=== PATIENT | male | born 1980 | race Caucasian/White ===

== ENCOUNTER 2019-03-14 14:44 | Outpatient (CLI) | payer OTHER ==
[~2019-03-14] VITALS: Ht 160 cm; Wt 86.1 kg
--- NOTE | ~2019-03-14 | HEMODYNAMI ---
PATIENT:LONA WILSON MEDICAL RECORD: [id number] : 80 [facility] [id number] ADMISSION DATE: 03/14/19 Generatedon:03/15/201912:45 Patient name: LONA WILSON Patient #: [id number] SSN: DO B: 1980 Date of study: 03/15/2019 Page: Of Hemodynamic Procedure Report Patient Data Patient Demographics Procedure consent was obtained First Name: LONA Gender: Male Last Name: KATIE : 1980 Patient #: [id number] Age: 38 year(s) Race: Unknown Additional ID: [id number] Contact details [address]: [address] [place] [address] [employer] [facility] [address] State: [place] City: [place] Zip code: [address] Admission Admission Data Admission Date: 03/14/2019 Admission Time: 14:44 Room #: D.2115 Height (in.): 63 BSA: 1.89 (m2) Height (cm.): 160.02 BMI: 33.64 (kg/m2) Weight (lbs.): 189.89 Weight (kg.): 86.13 Lab Results Lab Result Date: 03/15/2019 Lab Result Time: 0:00 Biochemistry Name Units Result Min Max BUN mg/dl 23 --(----)-* 7 18 Creatinine mg/dl 1.3 --(---*)-- 0.6 1.3 CBC Name Units Result Min Max Hemoglobin g/dl 13 -*(----)-- 13.5 17.5 Procedure Procedure Types Cath Procedure Diagnostic Procedure LHC LHC w/Coronaries Procedure Description Procedure Date Procedure Date: 03/15/2019 Procedure Start Time: 12:31 Procedure End Time: 12:37 Procedure Staff Name Function Familia Michelle MD Performing Physician Tia Crowe RT Monitor Deirdre Carrillo RN Nurse Yris Schmitt RT Scrub Procedure Data Cath Procedure Fluoroscopy Diagnostic fluoroscopy Total fluoroscopy Time: 0.9 time: 0.9 min min Diagnostic fluoroscopy Total fluoroscopy dose: 318 dose: 318 mGy mGy Contrast Material Contrast Material Type Amount (ml) Isovue 370 42 Entry Location Entry Primary Successful Side Size Upsize Upsize Entry Closure Succes sful Closure Location (Fr) 1 (Fr) 2 (Fr) Remarks Device Remarks Femoral Right 5 Fr Exoseal artery Estimated blood loss: 5 ml Diagnostic catheters Device Type Used For End Catheter Placement MULTIPACK Pigtail 5 Fr LV Angiography catheter MULTIPACK JL 4.0 5Fr Left Coronary catheter Angiography MULTIPACK 3DRC 5Fr Right Coronary catheter Angiography Procedure Complications No complications Procedure Medications Medication Administration Route Dosage Oxygen etCO2 Nasal cannula 2 l/min Lidocaine 2% added to field 20 Heparin Flush Bag added to field 2 bags (1000units/500ml NS) Versed I.V. 1 mg Fentanyl I.V. 50 mcg Versed I.V. 1 mg Fentanyl I.V. 50 mcg Hemodynamics Rest BSA: 1.89 (m2) HGB: 13 (g/dl) O2 Consumption: Estimated: 234.13 (ml/min) O2 Cons umption indexed: Estimated:123.88 (ml/min/m) Heart Rate: 73 (bpm) Pressure Samples Time Site Value (mmHg) Purpose Heart Use Rate(bpm) 12:32 LV 129/1,3 Snapshot 70 Snapshots Pre Cath Intra NCS Post Cath Vital Signs Time Heart Resp SPO2 etCO2 NIBP (mmHg) Rhythm Pain Sedation Rate (ipm) (%) (mmHg) Status Level (bpm) 12:15:31 74 17 100 0 139/89(105) NSR 0 (11) 10(A) , No pain 12:19:39 70 13 100 39.6 137/89(108) NSR 0 (11) 10(A) , No pain 12:23:43 74 16 100 38.1 133/93(109) NSR 0 (11) 10(A) , No pain 12:27:51 72 14 100 36.7 124/79(97) NSR 0 (11) 10(A) , No pain 12:31:55 74 14 98 30.6 123/84(93) NSR 0 (11) 9(A) , No pain 12:35:58 79 16 96 43.4 134/81(100) NSR 0 (11) 9(A) , No pain 12:40:02 74 13 98 43.3 126/82(104) NSR 0 (11) 10(A) , No pain 12:44:06 79 10 90 0 121/80(101) NSR 0 (11) 10(A) , No pain Medications Time Medication Route Dose Verified Delivered Reason Notes Eff ectiveness by by 12:19:12 Oxygen etCO2 2 Familia Irinaie used for Nasal l/min Miguel Angel Carrillo RN procedure cannula 12:19:20 Lidocaine 2% added 20ml Familia Familia for local to vial Miguel Angel Michelle MD anesthetic field 12:19:26 Heparin Flush added 2 Familia Familia used for Bag to bags Miguel Angel Michelle MD procedure (1000units/500ml field NS) 12:26:54 Versed I.V. 1 mg Familiahector Arevaloie for Miguel Angel Carrillo RN sedation 12:27:00 Fentanyl I.V. 50 Familia Buffie for mcg Miguel Angel Carrillo RN sedation 12:32:23 Versed I.V. 1 mg Familia Buffie for Miguel Angel Carrillo RN sedation 12:32:26 Fentanyl I.V. 50 Familia Buffie for mcg Miguel Angel Carrillo RN sedation Procedure Log Time Note 11:46:53 Patient Height : 63 inches 11:47:01 Patient Weight : 189.89 lbs 11:47:59 Lab Result : Hemoglobin 13 g/dl 11:47:59 Lab Result : Creatinine 1.3 mg/dl 11:47:59 Lab Result : BUN 23 mg/dl 11:48:41 Diagnostic Cath status Elective 11:48:44 Tia Crowe RT(R) sent for patient. Start room use. 11:48:45 Time tracking: Regular hours (M-F 7:00 - 5:00) 11:48:52 Plan of Care:Hemodynamics will remain stable., Cardiac rhythm will remain stable., Comfort level will be maintained., Respiratory function will remain adequate., Patient/ family verbilizes understanding of procedure., Procedure tolerated without complication., Recovers from procedure without complications.. 11:50:18 Patient received from Med II to CCL 1 Alert and oriented. Tansferred to table in Supine position. 12:14:21 Warm blankets applied, and saturnino hugger turned on for patient comfort. 12:14:21 Correct patient and procedure confirmed by team. 12:14:23 Signed procedure consent form obtained from patient. 12:14:24 ECG and BP/O2 sat monitors applied to patient. 12:14:24 Vital chart was started 12:14:25 Baseline sample Acquired. 12:14:30 Rhythm: sinus rhythm 12:14:33 Full Disclosure recording started 12:14:38 H&P Date Dictated: 03/15/2019 New H&P dictated by physician.. 12:14:39 Pre-procedure instructions explained to patient. 12:14:40 Pre-op teaching completed and patient verbalized understanding. 12:14:42 Family in waiting room. 12:14:44 Patient NPO since Midnight. 12:14:47 Is the patient allergic to Iodine/contrast media? No. 12:14:48 Was the patient premedicated? No 12:14:48 Is patient on blood thinner?Yes 12:14:51 ACC The patient was administered the following blood thiners within the last 24 hours: ACCPlavix 12:14:53 Patient diabetic? No. 12:14:55 Previous problem with sedation/anesthesia? No ? 12:14:57 Snore? Yes 12:14:58 Sleep apnea? Yes 12:14:59 Deviated septum? No 12:15:00 Opens mouth fully? Yes 12:15:00 Sticks out tongue? Yes 12:15:03 Airway obstruction? No ? 12:15:06 Dentures? No ? 12:15:09 Pre procedure: right dorsailis pedis pulse 2+ Normal; easily identifiable; not easily obliterated 12:15:12 Pre procedure: left dorsailis pedis pulse 2+ Normal; easily identifiable; not easily obliterated 12:15:14 Patient pain scale 0/10 ?. 12:15:23 IV patent on arrival in left antecubital with 0.9% NaCl at [facility]. 12:15:26 Lab results completed and on chart. 12:15:30 Right groin area was prepped with chlora-prep and draped in sterile fashion 12:15:30 Alarms reviewed by R. N. 12:15:31 Sharps counted by scrub and verified by R.N. 12:19:12 Oxygen 2 l/min etCO2 Nasal cannula was administered by Deirdre Carrillo RN; used for procedure; 12:19:20 Lidocaine 2% 20ml vial added to field was administered by Familia Michelle MD; for local anesthetic; 12:19:26 Heparin Flush Bag (1000units/500ml NS) 2 bags added to field was administered by Familia Michelle MD; used for procedure; 12:20: Physician arrived 12:: --------ALL STOP TIME OUT------ 12::07 Final Timeout: patient, procedure, and site verified with staff and physician. All members of the team are in agreement. 12:20:08 Right groin site verified by team. 12:20:11 Maximum allowable Isovue 370 dose 300ml. Physician notified. (300ml for normal creatinines. For patients with creatinine of 1.7 or higher multiply weight(kg) x 5 divided by creatinine.) 12:20:15 Fire Safety Assessment: A--An alcohol-based skin anteseptic being used preoperatively., C--Open oxygen or nitrous oxide is being used., D--An ESU, laser, or fiber-optic light is being used. 12:20:18 Physical assessment completed. ASA score P 2 - A patient with mild systemic disease as per Familia Michelle MD. 12:20:22 Sedation plan: IV Moderate Sedation Medication:Versed, Fentanyl 12:25:04 Use device set Femoral Dx 12:25:05 ACIST Syringe (11885) opened to sterile field. 12:25:06 Bag Decanter (2002S) opened to sterile field. 12:25:06 Medline Cath Pack ([id number]) opened to sterile field. 12:25:07 DIAGNOSTIC WIRE .035 260cm J wire (143227) opened to sterile field. 12:25:08 ACIST Hand Control (56957) opened to sterile field. 12:25:08 ACIST Manifold (14856) opened to sterile field. 12:25:09 DIAGNOSTIC Multipack 5Fr catheter set (OJ5423) opened to sterile field. 12:25:09 Tegaderm 4 x 4 (1626W) opened to sterile field. 12:25:10 SHEATH 5FR [place] (XVZ299) opened to sterile field. 12:26:16 Zero performed for pressure channel P1 12:26:54 Versed 1 mg I.V. was administered by Deirdre Carrillo RN; for sedation; 12:27:00 Fentanyl 50 mcg I.V. was administered by Deirdre Carrillo RN; for sedation; 12:29:42 Procedure started. 12:31:13 Local anesthetic to right femoral artery with Lidocaine 2% by Familia Michelle MD.INITIAL ACCESS ONLY 12::22 A 5 Fr sheath was inserted into the Right Femoral artery 12::54 A MULTIPACK Pigtail 5 Fr catheter was advanced over the wire and used for LV Angiography. 12:32:23 Versed 1 mg I.V. was administered by Deirdre Carrillo RN; for sedation; 12:: Fentanyl 50 mcg I.V. was administered by Deirdre Carrillo RN; for sedation; 12::53 LV hemodynamics recorded. 12:32:54 LV gram done using GANDARA 12::57 Injector settings: Ml/sec: 5, Volume: 15, 12:33:03 EF : 55 % 12:33:04 Catheter removed. 12:33:10 A MULTIPACK JL 4.0 5Fr catheter was advanced over the wire and used for Left Coronary Angiography. 12:33:57 LCA angiography performed. 12:34:00 Injector settings: Ml/sec: 3, Volume: 6, 12:34:39 Catheter removed. 12:34:45 A MULTIPACK 3DRC 5Fr catheter was advanced over the wire and used for Right Coronary Angiography. 12:35:24 RCA angiography performed. 12:35:30 Injector settings: Ml/sec: 3, Volume: 6, 12:35:32 Catheter removed. 12:35:44 EXOSEAL 5Fr (EX500) opened to sterile field. 12:35:55 Sheath removed intact; hemostasis achieved with Exoseal to the Right Femoral artery. 12:35:57 Procedure ended.(Physican Out) 12:36:24 Fluoroscopy time 00.90 minutes. 12:36:31 Fluoroscopy dose: 318 mGy 12:36:31 Flurop Dose total: 318 12:36:35 Contrast amount:Isovue 370 42ml. 12:36:37 Sharps counted by scrub and verified by R.N. 12:36:38 Insertion/operative site no bleeding no hematoma. 12:36:41 Post-op/insertion site Right Femoral artery dressed using a 4 x 4 and Tegaderm. 12:36:44 Post right femoral artery:stable 12:36:46 Post Procedure Pulses reassessed and unchanged 12:36:49 Post procedure rhythm: unchanged. 12:36:51 Estimated blood loss: 5 ml 12:36:53 Post procedure instruction explained to patient.Patient verbalizes understanding. 12:36:53 Patient needs reinforcement of post procedure teaching. 12:37:00 Procedure type changed to Cath procedure, Diagnostic procedure, LHC, LHC w/Coronaries 12:37:01 Procedure and supply charges have been captured, reviewed, submitted and are correct. 12:37:08 Procedure Complication : No complications 12:37:18 Vital chart was stopped 12:37:18 See physician's report for complete and final results. 12:37:23 Report given to [facility]. 12:37:25 Patient transfered to [facility] with Stretcher. 12:37:47 Procedure ended. 12:37:47 Full Disclosure recording stopped 12:37:54 End room use (Document Last) 12:39:05 Vital chart was started 12:45:06 Vital chart was stopped Device Usage Item Name Manufacture Quantity Catalog Hospital Part Current Minimal L ot# / Number Charge Number Stock Stock Serial# Code ACIST Acist 1 81787 471740 782797 188556 20 Syringe Medical (70151) Systems Inc Bag Microtek 1 2001S 599608 44999 518561 5 Decanter Medical Inc. () Medline Medline 1 [id number] 074925 27281 334217 5 Cath Pack ([id number]) DIAGNOSTIC St Noel 1 478627 782240 433477 346635 30 WIRE .035 260cm J wire (412966) ACIST Hand Acist 1 89749 382566 336575 018731 5 Control Medical (05288) Systems Inc ACIST Acist 1 25259 856728 478976 009751 5 Manifold Medical (09496) Systems Inc DIAGNOSTIC Cardinal 1 HG1402 839045 02068 580448 30 Multipack Health 5Fr catheter set (KY7241) Tegaderm 4 3M 1 1626W 185560 216268 107950 5 x 4 (1626W) SHEATH 5FR Terumo 1 FOV396 966492 497801 859013 5 [place] (HJG910) MULTIPACK Cardinal 1 825022 5 Pigtail 5 Health Fr catheter MULTIPACK Cardinal 1 386747 5 JL 4.0 5Fr Health catheter MULTIPACK Cardinal 1 767530 5 3DRC 5Fr Health catheter EXOSEAL 5Fr Cardinal 1 EX500 001693 760174 350413 10 (EX500) Health Signature Audit Rowley Stage Time Signature Unsigned Intra-Procedure 03/15/2019 Tia Crowe 12:45:02 PM RT(R) Signatures Monitor : Tia Crowe RT Signature : Date : Time : [id number] [place] [address]
[2019-03-14] MEDS ORDERED: PRAVACHOL20 MG (14:48)
[2019-03-14] MEDS ORDERED: COZAAR100 MG PO (14:49)
[2019-03-14 15:09] LABS: BASOPHILS 0.1 % (0-2); EOSINOPHILS 0.3 % (0-7); HEMATOCRIT 35.7 % (42.0-54.0); IMMATURE GRANULOCYTES 0.3 % (0-5); LYMPHOCYTES 16.5 % (15-50); MCH 32.7 pg (26.0-34.0); MCHC 36.4 g/dL (31.0-37.0); MCV 89.7 fL (80.0-100.0); MEAN PLATELET VOLUME 8.7 fL (7.4-10.4); MONOCYTES 6.7 % (2-11); NEUTROPHILS 76.1 % (40-80); PLATELET COUNT 216 10x3/uL (130-400); RBC 3.98 10x6/uL (4.20-6.10); RDW 13.1 % (11.5-14.5); WBC 7.3 10x3/uL (4.8-10.8)
[2019-03-14 15:19] LABS: APTT 32.8 SECONDS (22.8-39.4); INR 1.07 (0.85-1.17); PROTIME 13.4 SECONDS (11.6-15.0)
[2019-03-14 15:21] LABS: ALBUMIN 4.1 g/dL (3.4-5.0); ALKALINE PHOSPHATASE 80 U/L (46-116); ALT (SGPT) 97 U/L (10-68); BILIRUBIN - TOTAL 0.75 mg/dL (0.2-1.3); CALC OSMOLALITY 282 mosm/kg (275-300); CALCIUM 9.2 mg/dL (8.5-10.1); CARBON DIOXIDE 23.7 mmol/L (21.0-32.0); CHLORIDE - SERUM 103 mmol/L (98-107); CREATININE - SERUM 1.3 mg/dL (0.6-1.3); GLUCOSE 107 mg/dL (74-106); POTASSIUM - SERUM 3.2 mmol/L (3.5-5.1); PROTEIN - SERUM 7.2 g/dL (6.4-8.2); SODIUM 140 mmol/L (136-145); UREA NITROGEN 23 mg/dL (7-18); eGFR NON AFRICAN AMERICAN 65 mL/min (90-120)
[2019-03-14 15:36] LABS: CKMB 1.1 U/L (0.0-3.6); CREATINE KINASE 125 UL (21-232); MAGNESIUM - SERUM 1.7 mg/dL (1.8-2.4)
[2019-03-14 15:39] LABS: TROPONIN-I 0.072 ng/mL (0.000-0.060)
[2019-03-14 18:06] LABS: CKMB 1.8 U/L (0.0-3.6); CREATINE KINASE 128 UL (21-232)
[2019-03-14 18:07] LABS: TROPONIN-I 0.173 ng/mL (0.000-0.060)
--- NOTE | 2019-03-14 18:45 | NUR ---
ADMIT TO ROOM 2114 FROM ER AT 1830. PT ALERT/ORIENTED. SALINE LOCK TO ISI. NONLABORED RESPIRATIONS ON ROOM AIR. SR 80 PER TELEMETRY. CALL LIGHT IN REACH.
--- NOTE | 2019-03-14 20:00 | NUR ---
ADMISSION HISTORY AND ASSESSENT COMPLETED. HOME MEDS REVIEWED. PT IS FROM [place] OF STATE AND IS A BREASTER. DENIES PAIN OR DISCOMFORT AT THIS TIME.
--- NOTE | 2019-03-14 20:35 | NUR ---
CALLED FROM [place] AND EXPRESSED GREAT CONCERN FOR PT'S BP BEING SO LOW. STATES HIS NORMAL IS 130/80. AGREED TO HOLD THE LOPRESSOR FOR TONIGHT DUE TO HER CONCERN AND WILL MONITOR BLOOD PRESSURE.
[2019-03-14 23:09] VITALS: BP 103/10; Ht 160 cm; Wt 86.1 kg
[2019-03-14 23:38] LABS: CREATINE KINASE 113 UL (21-232)
[2019-03-14 23:40] LABS: TROPONIN-I 0.217 ng/mL (0.000-0.060)
--- NOTE | 2019-03-14 23:58 | NUR ---
PT RESTING. NO DISTRESS. SR PER TELEMETRY. LOPRESSOR HELD PER REQUEST OF FAMILY DUE TO CONCERNS FOR LOWER THAN NORMAL BP. PT TEACHING ON NPO AFTER MIDNIGHT UNTIL SEEN BY CHEMICAL INSTRUMENTATION OFFICER IN AM. PT VOICED UNDERSTANDING. MONITOR AND CPOC.
[2019-03-15 05:19] LABS: CKMB 2.1 U/L (0.0-3.6); CREATINE KINASE 102 UL (21-232)
[2019-03-15 05:21] LABS: TROPONIN-I 0.199 ng/mL (0.000-0.060)
--- NOTE | 2019-03-15 07:59 | NUR ---
REFUSES SCDS AT THIS TIME.
[2019-03-15 08:33] VITALS: BP 105/60
--- NOTE | 2019-03-15 09:48 | NUR ---
TELEMETRY SR. NO C/P C/P NOTED. FAMILY AT BS. CALL LIGHT IN REACH.
--- NOTE | 2019-03-15 12:07 | NUR ---
ECHO COMPLETED. PRE-OPS GIVEN. TO MEDICAL EDUCATION SPECIALIST BY BED.
--- NOTE | 2019-03-15 12:41 | HP ---
PATIENT: LONA WILSON MEDICAL RECORD: [id number] ACCOUNT: [id number] LOCATION:[address] : 80 ADMISSION DATE: 03/14/19 PCP: No PCP HISTORY AND PHYSICAL EXAMINATION DIAGNOSES: 1. Non-Q-wave myocardial infarction. 2. Hypertension. 3. Family history of coronary artery disease. HISTORY OF PRESENT ILLNESS: This is a gentleman with no previous cardiac history for the past week. He has had arm pain that he attributed to musculoskeletal in nature. Yesterday, he developed severe chest pain. This was while exerting himself trying to load something on to a truck. The chest pain lasted for approximately 45 minutes. He presented to the Emergency Room, it was resolved with nitro. His troponin was positive. He has had a recurrent episode of the chest pain today. He was on losartan for blood pressure. He had the addition of Lopressor yesterday. At this time, his heart rates in the 70s, systolic blood pressure is 98, hence there is no more room for medical management and he has continued to have the episodic pain on maximal medical management. He did not feel palpitations with the chest discomfort yesterday. He felt a very prominent strong heartbeat and the arm pain worsened. He is still having the arm pain today as well. PHYSICAL EXAMINATION: GENERAL APPEARANCE: Well-nourished, well-developed, appears stated age. Level of distress, comfortable. PSYCHIATRIC: Mental status, alert, normal affect. Orientation, oriented to time, place and person. EYES: Lids and conjunctiva, noninjected. No discharge, no pallor. ENT: Lips, teeth, gums, normal dentition. Oropharynx, no cyanosis, no pallor. NECK: Carotid arteries, bilateral normal upstroke, no bruits, no thrills. JUGULAR VEINS: No jugular venous pressure or distention. CERVICAL LYMPH NODES: Nontender, nonenlarged. THYROID: Not enlarged. Nontender. No nodules. LUNGS: Respiratory effort, unlabored. CHEST: Normal curvature. No thoracic deformity. No chest wall tenderness. Percussion, resonant. Auscultation, clear. No wheezes, no rales, no rhonchi. CARDIOVASCULAR: Precordial exam, nondisplaced. No heaves or pericardial thrills. Rate and rhythm, regular. Heart sounds, normal S1, normal S2. No S3, no gallop, no rub. Systolic murmur, not heard. Diastolic murmur, not heard. EXTREMITIES: No cyanosis, no edema. Peripheral pulses, full and equal in all extremities, except as noted. No bruits appreciated. ABDOMEN: Soft, nondistended. Normal aorta. No bruit. Nontender. No masses. Liver, nontender, no hepatomegaly. Spleen, nontender, no splenomegaly. MUSCULOSKELETAL: No joint tenderness. No joint swelling. No erythema. NEUROLOGICAL: Normal gait, normal strength, normal tone. SKIN: Warm and dry. OVERALL IMPRESSION: Non-Q-wave myocardial infarction with continued symptomatology despite maximal medical therapy. We will proceed with coronary angiography. Further care depends upon findings of the angiography. TRANSINT:[id number] Voice Confirmation ID: [id number] DOCUMENT ID: [id number] HISTORY AND PHYSICAL [id number] LONA WILSON JEFFREY MD at 1241 CC: [id number] DICTATION DATE: 03/15/19 1119 WIRELESS ARCHITECT: 03/15/19 1207 [facility] [address] [place] [address]
--- NOTE | 2019-03-15 12:44 | NUR ---
ECHO COMPLETED AT BS.
--- NOTE | 2019-03-15 13:07 | NUR ---
BACK FROM PACKAGE MAKER. VS WNL. RIGHT GROIN STABLE WITHOUT BLEEDING OR HEMATOMA NOTED. WILL MONITOR.
[2019-03-15] MEDS ORDERED: TOPROL XL25 MG PO (14:27)
--- NOTE | 2019-03-15 15:35 | NUR ---
IV AND TELEMTRY DCD. DC PLANS GIVEN. UNDERSTANDING VOICED. ESWCORTED TO CAR BY W/C.
--- NOTE | 2019-03-19 11:19 | EC ---
PATIENT:LONA WILSON DATE OF SERVICE: 03/14/19 SEX: M MEDICAL RECORD: [id number] DATE OF : 80 LOCATION:D.CAT AGE OF PATIENT: 38 ADMISSION DATE: 03/14/19 REFERRING PHYSICIAN: INTERPRETING PHYSICIAN: KARLIE MICHELLE MD ECHOCARDIOGRAM REPORT ECHO CHARGES 4 ECHO COMPLETE Date: 03/15/19 CLINICAL DIAGNOSIS: [place] ECHOCARDIOGRAPHIC MEASUREMENTS (adult normal given) AC root (d.<3.7cm) 2.3 cm LV Septum d (<1.2 cm> 1.0 cm Valve Excursion 1.6 cm LV Septum (systole) 1.2 cm Left Atria (s.<4.0cm> 2.9 cm LVPW d(<1.2cm) 1.2 cm RV (d.<2.3cm) 3.1 cm LVPW (sytole) 1.3 cm LV diastole(<5.6CM) 4.0 cm MV E-F(>70mm/sec) cm LV systole 3.1 cm LVOT Diameter 1.8 cm MV exc.(>10mm) cm Est.ejection fraction (50-75%) % DOPPLER: LVIT cm/sec A 55 cm/sec E 93 cm/sec LA cm/sec RVSP 19.4 mmHg LVOT 99 cm/sec AOP1/2T m/s Asc. Ao 113 cm/sec RVOT cm/sec RA cm/sec PA cm/sec AV Gradient Peak 5.1 mmHg AV Mean 2.6 mmHg AV Area cm MV Gradient Peak 4.1 mmHg MV Mean 1.9 mmHg MV Area cm COMMENTS: Legal Recovery Specialist: Yanira HERNANDEZ Geological Technical Officer: 1 Dr. Michelle TAPE# PACS Pericardial Effusion N DATE OF SERVICE: 03/15/2019 FINDINGS: 1. Left ventricular chamber size is within normal limits. Left ventricular systolic function is normal. Overall ejection fraction estimated at 55%. 2. Left atrium, right atrium, and right ventricular chamber sizes are within normal limits. 3. Valvular structures have normal structure and motion. 4. Doppler interrogation reveals mild tricuspid regurgitation, no other valvular insufficiency or stenosis. ECHOCARDIOGRAM REPORT [id number] LONA WILSON 5. No evidence of pericardial effusion or left ventricular thrombus. TRANSINT:[id number] Voice Confirmation ID: [id number] DOCUMENT ID: [id number] KARLIE MICHELLE MD at 1119 CC: [id number] DICTATION DATE: 03/16/19 1023 WATER SERVICE DISPATCHER: 03/16/19 1412 DEP CLI 03/15/19 [id number] [place] [address]
--- NOTE | 2019-03-19 11:19 | OP ---
PATIENT NAME: LONA WILSON MEDICAL RECORD: [id number] :80 LOCATION:D.CAT ADMISSION DATE: SURGEON: KARLIE JENSEN MD DATE OF OPERATION: 03/15/2019 PROCEDURES: 1. Left heart catheterization. 2. Selective coronary angiography. 3. Left ventriculogram. INDICATIONS: Non-Q-wave myocardial infarction, chest pain, hypertension, family history of coronary artery disease. PROCEDURE PERFORMED: After informed consent was obtained and after a detailed explanation of risks, benefits as well as alternative therapies, the patient elected to proceed with angiogram and angioplasty. The right femoral area was prepped and draped in normal sterile fashion. Right femoral artery was cannulated via modified Seldinger technique with placement of 5-Nauruan sheath. All catheters exchanged through this sheath. FINDINGS: Left ventriculogram was performed in standard 30-degree GANDARA view, reveals good cardiac wall motion, ejection fraction of 60%. SELECTIVE CORONARY ANGIOGRAPHY: Left main, left anterior descending, left circumflex, right coronary artery are all smooth-walled vessels with no angiographic evidence of coronary artery disease. OVERALL IMPRESSION: 1. No angiographic evidence of coronary artery disease. 2. Normal left heart pressures. 3. Normal left ventricular systolic function. Chest pain is noncardiac in etiology. No further cardiac workup needs to be ascertained. TRANSINT:[id number] Voice Confirmation ID: [id number] DOCUMENT ID: [id number] KARLIE JENSEN MD at 1119 CC: [id number] DICTATION DATE: 03/15/19 1241 PROCESS DESIGN ENGINEER: 03/15/19 1340 DEP CLI 03/15/19 [address] [place] [address]
--- NOTE | 2019-03-19 11:19 | DS ---
PATIENT:LONA ALFONSO :80 MEDICAL RECORD: [id number] DISCHARGE SUMMARY ADMISSION DATE: 03/14/19 DISCHARGE DATE: 03/15/19 DIAGNOSES: 1. Non-Q-wave myocardial infarction. 2. Hypertension. HOSPITAL COURSE: Mr. Alfonso presents with chest pain of approximately 45 minute duration, elevated troponin. He has had palpitations with the chest discomfort. Cardiac catheterization was normal. Most likely had a significant dysrhythmia. The increased troponin was from demand ischemia from the dysrhythmia. He was started on Toprol 25 mg every day. We will follow up with [place] physician [place]. TRANSINT:[id number] Voice Confirmation ID: [id number] DOCUMENT ID: [id number] KARLIE JENSEN MD at 1119 CC: [id number] DICTATION DATE: 03/15/19 1240 BOTTLE HOP: 03/16/19 0959 DEP CLI 03/15/19 [address] [place] [address]
== END 2019-03-15 15:36 | disposition home or self-care (01) ==
LOC: D.M2 14:44 → D.ER 14:44 → EDBD 14:44 → D.CATH 14:44 → EDSTATUS 17:29 → D.M2 18:27 → D.CATH 03-15 15:36
PROVIDERS: Emergency Medicine; ATTEND Internal Medicine Interventional Cardiology
DX: I21.4 Non-ST elevation (NSTEMI) myocardial infarction (principal); I10 Essential (primary) hypertension; Z82.49 Family history of ischemic heart disease and other diseases of the circulatory system